=== PATIENT | male | born 1985 | race Caucasian/White ===

== ENCOUNTER 2024-01-13 15:47 | Outpatient (CLI) | payer MEDICAID | END 2024-01-13 23:59 | disposition home or self-care (01) | LOC: RAD 15:47 | PROVIDERS: ATTEND Physician Assistant | DX: M51.17 Intervertebral disc disorders with radiculopathy, lumbosacral region (principal) | CPT/HCPCS: 72110 ==

== ENCOUNTER 2024-02-01 14:09 | Outpatient (CLI) | payer MEDICAID ==
[~2024-02-01] VITALS: Ht 188 cm; Wt 174.6 kg
[2024-02-01] MEDS: albuterol 2.5 MG/3 ML nebule NEB PRN (14:46)
[2024-02-01 14:50] VITALS: PULSE 105; RESP 16; O2SAT 96
== END 2024-02-01 23:59 | disposition home or self-care (01) ==
LOC: RT 14:09 → EDUNIT# 14:30 → RT 23:59
PROVIDERS: ATTEND Physician Assistant
DX: J45.20 Mild intermittent asthma, uncomplicated (principal)
CPT/HCPCS: 94060; 94760